=== PATIENT | female | born 1980 ===

== ENCOUNTER → 2024-10-27 | Outpatient (CLI) | payer OTHER ==
[2024-11-07 14:46] LABS: HPV HIGH RISK BY TMA Not Detected; HPV SOURCE Cervical
== END | disposition home or self-care (01) ==
LOC: LAB 09:45 → LAB SHORT 09:45
PROVIDERS: Family Medicine
DX: Z01.419 Encounter for gynecological examination (general) (routine) without abnormal findings (principal)
CPT/HCPCS: 87624; G0123